=== PATIENT | male | born 1970 | race Caucasian/White ===

== ENCOUNTER 2019-02-06 23:38 | Observation (INO) | payer SELFPAY ==
[~2019-02-06] VITALS: Ht 182.9 cm; Wt 100.2 kg
[2019-02-06] MEDS ORDERED: ASPIRIN 81 MG CHEW (CHILDREN'S ASA) ONE (23:58)
[2019-02-07] VITALS (10 sets, daily range): BP systolic 108–130; BP diastolic 63–90
[2019-02-07] MEDS ORDERED: ANTACID SUSP 30 ML UDC (MYLANTA) ONE (01:10)
[2019-02-07] MEDS ORDERED: KETOROLAC 30 MG/ML VIAL ONE (01:10)
[2019-02-07] MEDS ORDERED: LIDOCAINE 2% VISCOUS 15 ML UDC ONE (01:10)
[2019-02-07 02:18] LABS: BASOPHILS % (AUTO) 0 % (0-10); EOSINOPHILS % (AUTO) 1 % (0-10); HEMATOCRIT 45 % (40-54); HEMOGLOBIN 14.9 G/DL (13.3-17.7); LYMPHOCYTES % (AUTO) 32 % (12-44); MEAN CORPUSCULAR HEMOGLOBIN 30 PG (25-34); MEAN CORPUSCULAR HGB CONC 33 G/DL (32-36); MEAN CORPUSCULAR VOLUME 89 FL (80-99); MEAN PLATELET VOLUME 10.6 FL (7.4-10.4); MONOCYTES % (AUTO) 7 % (0-12); NEUTROPHILS % (AUTO) 60 % (42-75); PLATELET COUNT 220 10^3/uL (130-400); RED CELL DISTRIBUTION WIDTH 13.9 % (10.0-14.5)
[2019-02-07 02:19] LABS: CARBON DIOXIDE 23 MMOL/L (21-32); CHLORIDE 104 MMOL/L (98-107); EOSINOPHILS # (AUTO) 0.1 10^3/uL (0.0-0.3); LYMPHOCYTES # (AUTO) 3.5 X 10^3 (1.0-4.0); MONOCYTES # (AUTO) 0.8 X 10^3 (0.0-1.0); NEUTROPHILS # (AUTO) 6.6 X 10^3 (1.8-7.8); POTASSIUM 4.1 MMOL/L (3.6-5.0); SODIUM 138 MMOL/L (135-145)
[2019-02-07 02:20] LABS: ALANINE AMINOTRANSFERASE 14 U/L (0-55); ALBUMIN 4.5 GM/DL (3.2-4.5); ALKALINE PHOSPHATASE 105 U/L (40-136); AMYLASE 38 U/L (25-125); BILIRUBIN,TOTAL 0.5 MG/DL (0.1-1.0); BUN/CREATININE RATIO 13; CALCIUM 9.4 MG/DL (8.5-10.1); CREATININE SERUM 1.13 MG/DL (0.60-1.30); GFR ESTIMATED > 60; GLUCOSE 106 MG/DL (70-105); MYOGLOBIN SERUM 56.2 NG/ML (10.0-92.0); TOTAL PROTEIN 7.6 GM/DL (6.4-8.2)
[2019-02-07 02:21] LABS: LIPASE 10 U/L (8-78)
[2019-02-07] MEDS ORDERED: fentaNYL INJECTION 100 MCG/2 ML AMP ONE (02:22)
--- NOTE | 2019-02-07 02:36 | ED Chest Pain ---
General Stated Complaint: CP Source: patient Exam Limitations: no limitations History of Present Illness Date Seen by Provider: Feb 07, 2019 Time Seen by Provider: 00:50 Initial Comments Here with report of chest pain is been going on for the last 12 hours constantly and intermittently over the last 24 hours. Denies nausea, vomiting or diarrhea. Does admit to diaphoresis and shortness of air. States that he's had 3 previous heart calves and heart attacks but no stents. States that is 70% block in one of his vessels on his last heart catheter a few years ago. Nothing seems to be making it better. He seems to have worsened with activity. He is new to town with his and apparently got into town just today. They're looking around town for a house when their truck broke down and so there are walking around town. He was during this that his chest pain became persistent and severe. Reports a central and radiates to the left shoulder. Reportedly tried several nitroglycerin tablets that he had and that did not help. Timing/Duration: 12 hours Severity/Quality: moderate, severe, pressure Location: central Radiation: shoulders Activities at Onset: activity Prior CP/Workup: cardiac cath ASA po CUSTOMER QUALITY ENGINEER: Yes NTG SL CUSTOMER QUALITY ENGINEER: Yes Associated Symptoms: No abdominal pain, No back pain; diaphoresis; No fever/ chills, No nausea/vomiting; shortness of breath; No weakness Allergies and Home Medications Allergies Coded Allergies: Penicillins (Verified Allergy, Unknown, 02/07/19) heparin (Verified Allergy, Unknown, 02/07/19) morphine (Verified Allergy, Unknown, 02/07/19) Patient Home Medication List Home Medication List Reviewed: Yes Review of Systems Review of Systems Constitutional: see HPI EENTM: No Symptoms Reported Respiratory: Shortness of Air; Denies Wheezing Cardiovascular: Chest Pain; Denies Edema Gastrointestinal: Denies Abdominal Pain, Denies Diarrhea, Denies Nausea, Denies Vomiting Genitourinary: No Symptoms Reported Musculoskeletal: No back pain; muscle pain Skin: no symptoms reported Psychiatric/Neurological: No Symptoms Reported Endocrine: No Symptoms Reported All Other Systems Reviewed Negative Unless Noted: Yes Past Ufjkeqk-Lwluge-Tiyrys Hx Past Med/Social Hx: Reviewed Nursing Past Med/Soc Hx Patient Social History Alcohol Use: Denies Use Recreational Drug Use: No Smoking Status: Current Everyday Smoker Recent Foreign Travel: No Contact w/Someone Who Travel: No Past Medical History Surgeries: Yes Adenoidectomy, Ear Surgery, Tonsillectomy Respiratory: No Cardiac: Yes Coronary Artery Disease, High Cholesterol, Hypertension Neurological: No Genitourinary: No Gastrointestinal: No Musculoskeletal: No Endocrine: No HEENT: No Cancer: No Psychosocial: No Family Medical History Reviewed and Corrections made Heart Disease, Cancer, Hypertension Physical Exam Vital Signs Vital Signs - First Documented Capillary Refill : Height, Weight, BMI Height: '" Weight: lbs. oz. kg; BMI Method: General Appearance: No Apparent Distress, WD/WN HEENT: PERRL/EOMI, Pharynx Normal Neck: Non Tender, Supple Respiratory: Lungs Clear, Normal Breath Sounds Cardiovascular: Regular Rate, Rhythm, No Murmur Gastrointestinal: Non Tender, Soft Extremity: Normal Range of Motion, Non Tender Neurologic/Psychiatric: Alert, Oriented x3 Skin: Normal Color, Warm/Dry Progress/Results/Core Measures Results/Orders My Orders Medications Given in ED Vital Signs/I&O 02/06/19 02/06/19 23:38 23:38 Temp 98.9 Pulse 81 Resp 16 B/P (MAP) 149/109 (122) Pulse Ox 96 O2 Delivery Room Air Room Air Progress Progress Note : Progress Note Seen and evaluated. Down time charting initiated. IV, labs, chest x-ray, lipase and d-dimer ordered. GI cocktail and Toradol 30 mg IV ordered. This did not help his pain. 0204: Pain still persistent despite meds. Fentanyl 25 g IV. Given his history and previous heart catheter with moderate blockage noted, patient will need admission. This was discussed with the patient his . They agree to admission, observation status. Case is discussed with Dr. CORRAL and he accepts patient for admission. Consult cardiology in the morning. Initial ECG Impression Date: Feb 06, 2019 Initial ECG Impression Time: 23:43 Initial ECG Rate: 74 Initial ECG Rhythm: Normal Sinus Initial ECG Comparisson: No Previous ECG Available Comment Sinus rhythm with normal axis. No evidence of ST elevation NV. No previous available for comparison. Interpreted by me. Diagnostic Imaging Diagonstic Imaging: Xray Plain Films/CT/US/NM/MRI: chest Comments no acute findings. Reviewed: Reviewed by Me Departure Communication (Admissions) Time/Spoke to Admitting Phy: 02:04 Impression Primary Impression: Chest pain Qualified Codes: R07.9 - Chest pain, unspecified Disposition: 09 ADMITTED INPATIENT Condition: Stable Admissions Decision to Admit Reason: Admit from ER (Trauma) Decision to Admit/Date: Feb 07, 2019 Time/Decision to Admit Time: 02:04 Departure-Patient Inst. Referrals: NO,LOCAL PHYSICIAN (PCP/Family) Primary Care Physician FELIPE BROWN MD Feb 07, 2019 02:36
[2019-02-07] MEDS ORDERED: ASPIRIN 81 MG CHEW (CHILDREN'S ASA) PO ONE (03:15)
[2019-02-07] MEDS ORDERED: NS IV 1000 ML 1,000 ML ONE (03:35)
[2019-02-07] MEDS ORDERED: fentaNYL INJECTION 100 MCG/2 ML AMP IV PRN (04:15)
[2019-02-07] MEDS ORDERED: RT-ALBUTEROL/IPRATROPIUM 3 ML (DUONEB) VIAL INH PRN (04:15)
[2019-02-07] MEDS ORDERED: NITROGLYCERIN 0.4 MG SL TABS BTL 25'S SL PRN (04:15)
[2019-02-07] MEDS ORDERED: NS IV 1000 ML 1,000 ML IV SCH (04:15)
[2019-02-07] MEDS ORDERED: ONDANSETRON 4 MG/2 ML (SDV) Z0FRAN IV PRN (04:15)
[2019-02-07] MEDS ORDERED: KETOROLAC 30 MG/ML VIAL IVP PRN (05:30)
[2019-02-07] MEDS ORDERED: ANTACID SUSP 30 ML UDC (MYLANTA) PO ONE (05:30)
[2019-02-07] MEDS ORDERED: LIDOCAINE 2% VISCOUS 15 ML UDC PO ONE (05:30)
--- NOTE | 2019-02-07 06:45 | Consultation-Cardiology ---
HPI-Cardiology Cardiology Consultation Date of Consultation 02/07/19 Date of Admission Time Seen by Provider: 06:40 Indication: Chest pain HPI 48 years old gentleman with history of coronary artery disease reported multiple cardiac catheterization last cardiac catheterization was done late in 2017 and reported to have kfwh-vi-xdbsosuj disease nonobstructive disease. Has been having recurrent chest pain described as left sided associated with shortness of breath. No palpitation, no syncope or near syncopal episodes. No claudications. Home Medications & Allergies Allergies: Coded Allergies: Penicillins (Verified Allergy, Unknown, 02/07/19) Sulfa (Sulfonamide Antibiotics) (Verified Allergy, Unknown, 02/07/19) codeine (Verified Allergy, Unknown, 02/07/19) heparin (Verified Allergy, Unknown, 02/07/19) meperidine (Verified Allergy, Unknown, 02/07/19) morphine (Verified Allergy, Unknown, 02/07/19) Home Medication List Reviewed: Yes NMM-Cbxtgf-Wdpcmu Hx Patient Social History Marital Status: Employed/Student: unemployed Alcohol Use: Denies Use Recreational Drug Use: No Smoking Status: Current Everyday Smoker Type Used: Cigarettes 2nd Hand Smoke Exposure: Yes Recent Foreign Travel: No Recent Infectious Disease Expo: No Recent Hopitalizations: No Past Medical History as described below Family Medical History Significant Family History: Heart Disease, Cancer, Hypertension Family Medical Hx noncontributory Review of Systems Constitutional: no symptoms reported, see HPI EENTM: see HPI, no symptoms reported Respiratory: see HPI; No cough; dyspnea on exertion; No hemoptysis, No orthopnea, No phlegm, No short of breath, No stridor, No wheezing, No other Cardiovascular: see HPI, chest pain; No edema, No Hx of Intervention, No palpitations, No syncope, No vascular heart diseas, No other Gastrointestinal: no symptoms reported, see HPI Genitourinary: no symptoms reported, see HPI Musculoskeletal: no symptoms reported, see HPI Skin: no symptoms reported, see HPI Psychiatric/Neurological: No Symptoms Reported, See HPI Physical Exam Vital Signs Vital Signs - First Documented 02/07/19 04:11 FiO2 21 Capillary Refill : Less Than 3 Seconds Height, Weight, BMI Height: 6'0.00" Weight: 221lbs. 0.0oz. 100.202556lh; 30.0 BMI Method:Stated General Appearance: No Apparent Distress, WD/WN Eyes: Bilateral Eye Normal Inspection, Bilateral Eye PERRL, Bilateral Eye EOMI HEENT: PERRL/EOMI, TMs Normal, Normal ENT Inspection, Pharynx Normal Neck: Full Range of Motion, Normal Inspection, Non Tender, Supple, Carotid Bruit Respiratory: Chest Non Tender, Lungs Clear, Normal Breath Sounds, No Accessory Muscle Use, No Respiratory Distress Cardiovascular: Regular Rate, Rhythm, No Edema, No Gallop, No JVD, No Murmur, Normal Peripheral Pulses Gastrointestinal: Normal Bowel Sounds, No Organomegaly, No Pulsatile Mass, Non Tender, Soft Back: Normal Inspection, No CVA Tenderness, No Vertebral Tenderness Extremity: Normal Capillary Refill, Normal Inspection, Normal Range of Motion, Non Tender, No Calf Tenderness, No Pedal Edema Neurologic/Psychiatric: Alert, Oriented x3, No Motor/Sensory Deficits, Normal Mood/Affect Skin: Normal Color, Warm/Dry Lymphatic: No Adenopathy A/P-Cardiology Admission Diagnosis Chest pain Coronary artery disease Hypertension Hyperlipidemia Assessment/Plan Chest pain nonspecific etiology, resembling angina, planning to evaluate stress echo Coronary artery disease, reported multiple cardiac catheterization, last cardiac catheterization was done late in 2016 in [place], reporting mild to moderate disease nonobstructive disease. Treated conservatively Hypertension, restart home medication monitor blood pressure next Hyperlipidemia, restart home medication monitor Tobaccoism, educated on smoking cessation Stress test is negative, ok for discharge Clinical Quality Measures AMI/AHF: ASA po Prior to arrival: Yes DVT/VTE Risk/Contraindication: Risk Factor Score Per Nursin RFS Level Per Nursing on Admit: 2=Moderate RAVEN DIA MD Feb 07, 2019 06:45
--- NOTE | 2019-02-07 07:24 | Diagnostic Imaging Report ---
INDICATION: Chest pain Upright portable AP view of the chest is obtained. There is no previous study for comparison. There is mild air trapping in the upper lobes. No pneumothorax or consolidation is identified. There maybe mild parahilar atelectasis, greater on the right. IMPRESSION: Right parahilar atelectasis with air trapping in the upper lobes which could be due to emphysema. Otherwise no acute abnormality seen. Dictated by: Dictated on workstation # [id number]
[2019-02-07] MEDS ORDERED: FLU QUADRIvalent (5+ YOA) 2018-2019 (AFLURIA) 0.5 ML IM ONE (07:30)
--- OUTSIDE RECORDS SUMMARY | 2019-02-07 07:35 | XMS REPORT | Continuity of Care Document ---
Author Author [facility] Organization [facility] Address Unknown Phone Unavailable Allergies There is no data. Medications There is no data. Problems There is no data. Procedures There is no data. Results There is no data. Encounters ACCT No. Visit Date/Time Discharge Status Pt. Type Provider Facility Loc./Unit Complaint [id number] 07/01/2015 14:53:00 07/01/2015 15:52:00 [facility]
--- OUTSIDE RECORDS SUMMARY | 2019-02-07 07:36 | XMS REPORT | Continuity of Care Document ---
Author Author [facility] Organization [facility] Address Unknown Phone Unavailable Allergies There is no data. Medications There is no data. Problems There is no data. Procedures There is no data. Results There is no data. Encounters ACCT No. Visit Date/Time Discharge Status Pt. Type Provider Facility Loc./Unit Complaint [id number] 07/01/2015 14:53:00 07/01/2015 15:52:00 DIS Emergency [facility]
--- NOTE | 2019-02-07 07:49 | History & Physical-Hospitalist ---
History of Present Illness HPI/Chief Complaint Pt is a 48yoCM with a PMH of CAD who presented to the ER due to chest pain. His car broke down and he was walking when he developed central chest pain that radiated to his left arm. He states he became quite sweaty and SOB with it as well. When it persisted despite rest he decided to seek care in the ER as he thought the pain felt similar to his previous heart attacks. He was given a GI cocktail without relief and nitro without relief. He states the only thing that helped was fentanyl. He states he is still having slight chest pain now. He reports a history of 3 heart attacks and 4 cardiac caths done in the past without stent placement. He believes he has a 70% stenosis somewhere but was told they wouldn't stent it unless it was over 85% but the outside facility. Source: patient Date Seen 02/07/19 Time Seen by a Provider: 07:44 Attending Physician Gareth Franco MD PCP No,Local Physician Referring Physician Date of Admission Feb 07, 2019 at 02:04 Home Medications & Allergies Home Medications Reviewed patient Home Medication Reconciliation performed by pharmacy medication reconciliations oxygen equipment technician and/or nursing. Patients Allergies have been reviewed. Allergies Allergies Coded Allergies Penicillins (Verified Allergy, Unknown, 02/07/19) Sulfa (Sulfonamide Antibiotics) (Verified Allergy, Unknown, 02/07/19) codeine (Verified Allergy, Unknown, 02/07/19) heparin (Verified Allergy, Unknown, 02/07/19) meperidine (Verified Allergy, Unknown, 02/07/19) morphine (Verified Allergy, Unknown, 02/07/19) Past Gvwqpoa-Gnmshc-Hpnfvl Hx Past Med/Social Hx: Reviewed Nursing Past Med/Soc Hx Patient Social History Marrital Status: Employed/Student: unemployed Alcohol Use: Denies Use Recreational Drug Use: No Smoking Status: Current Everyday Smoker Cigaretts per day: 10 Type Used: Cigarettes 2nd Hand Smoke Exposure: Yes Recent Foreign Travel: No Contact w/other who traveled: No Recent Hopitalizations: No Recent Infectious Disease Expo: No Seasonal Allergies Seasonal Allergies: No Past Medical History Surgeries: Adenoidectomy, Ear Surgery, Tonsillectomy Cardiac: Coronary Artery Disease, Heart Attack, High Cholesterol, Hypertension History of Blood Disorders: No Family History Reviewed Nursing Family Hx Heart Disease, Cancer, CAD Under 55 Years Old, Hypertension Review of Systems Constitutional: no symptoms reported EENTM: no symptoms reported Respiratory: dyspnea on exertion, short of breath Cardiovascular: see HPI, chest pain; No edema; Hx of Intervention; No palpitations Gastrointestinal: no symptoms reported Genitourinary: no symptoms reported Musculoskeletal: no symptoms reported Skin: no symptoms reported Psychiatric/Neurological: No Symptoms Reported Physical Exam Physical Exam Vital Signs Vital Signs - First Documented 02/07/19 04:11 FiO2 21 Capillary Refill : Less Than 3 Seconds Height, Weight, BMI Height: 6'0.00" Weight: 221lbs. 0.0oz. 100.797378xe; 30.0 BMI Method:Stated General Appearance: No Apparent Distress, WD/WN HEENT: PERRL/EOMI, Moist Mucous Membranes; No Scleral Icterus (L), No Scleral Icterus (R) Neck: Normal Inspection, Supple; No Thyromegaly Respiratory: Lungs Clear, No Accessory Muscle Use, No Respiratory Distress Cardiovascular: Regular Rate, Rhythm, No Murmur, Normal Peripheral Pulses Gastrointestinal: Normal Bowel Sounds, Non Tender, Soft Extremity: No Calf Tenderness, No Pedal Edema Neurologic/Psychiatric: Alert, Oriented x3, Normal Mood/Affect Skin: Normal Color, Warm/Dry Results Results/Procedures Labs Patient resulted labs reviewed. Imaging: Reviewed Imaging Report Imaging Date of Exam:02/07/19 CHEST 1 VIEW, AP/PA ONLY INDICATION: Chest pain Upright portable AP view of the chest is obtained. There is no previous study for comparison. There is mild air trapping in the upper lobes. No pneumothorax or consolidation is identified. There maybe mild parahilar atelectasis, greater on the right. IMPRESSION: Right parahilar atelectasis with air trapping in the upper lobes which could be due to emphysema. Otherwise no acute abnormality seen. Assessment/Plan Admission Diagnosis Chest Pain Admission Status: Observation Diagnosis/Problems Diagnosis/Problems (1) Chest pain Status: Acute Assessment & Plan: Cardiology consulted, appreciate recs Troponin negative x2 Plan for Stress Echo If negative could DC if ok with cardiology Qualifiers: Chest pain type: unspecified Qualified Codes: R07.9 - Chest pain, unspecified (2) Tobacco abuse Assessment & Plan: Recommended smoking cessation Clinical Quality Measures AMI/AHF: ASA po Prior to arrival: Yes DVT/VTE Risk/Contraindication: Risk Factor Score Per Nursin RFS Level Per Nursing on Admit: 2=Moderate DIANNE IBANEZ MD Feb 07, 2019 07:49
[2019-02-07] MEDS ORDERED: ASPIRIN E.C. 81 MG (ECOTRIN) TAB PO SCH (09:00)
--- NOTE | 2019-02-07 09:11 | Discharge Inst-Simple/Standard ---
Discharge Inst-Standard Patient Instructions/Follow Up Plan of Care/Instructions/FU: Please continue to take your medications as written. Please follow up with Dr Davison in 1 month and establish care with a PCP here in town. Activity as Tolerated: Yes Discharge Diet: Cardiac Diet Return to The Hospital For: Chest pain, shortness of breath, if you feel you are getting worse. Planned Outpatient Orders/Ref. Pneu Vac Indicated: Yes DIANNE IBANEZ MD Feb 07, 2019 09:11
--- NOTE | 2019-02-07 09:30 | NUR ---
CM/SS spoke with the patient and his SO. They recently moved to the area. They utilize all resources available at the [facility] and have been approved for the housing program. Patient did not feel he had any other needs related to discharge.
--- NOTE | 2019-02-07 19:39 | Short Stay Summary-Hospitalist ---
History of Present Illness HPI/Chief Complaint Pt is a 48yoCM with a PMH of CAD who presented to the ER due to chest pain. His car broke down and he was walking when he developed central chest pain that radiated to his left arm. He states he became quite sweaty and SOB with it as well. When it persisted despite rest he decided to seek care in the ER as he thought the pain felt similar to his previous heart attacks. He was given a GI cocktail without relief and nitro without relief. He states the only thing that helped was fentanyl. He states he is still having slight chest pain now. He reports a history of 3 heart attacks and 4 cardiac caths done in the past without stent placement. He believes he has a 70% stenosis somewhere but was told they wouldn't stent it unless it was over 85% but the outside facility. Date Seen 02/07/19 Time Seen by a Provider: 07:30 Attending Physician Gareth Franco MD PCP No,Local Physician Referring Physician Date of Admission Feb 07, 2019 at 02:04 Home Medications & Allergies Home Medications Reviewed patient Home Medication Reconciliation performed by pharmacy medication reconciliations printer technician and/or nursing. Patients Allergies have been reviewed. Allergies Allergies Coded Allergies Penicillins (Verified Allergy, Severe, Anaphylaxis , 02/07/19) Sulfa (Sulfonamide Antibiotics) (Verified Allergy, Intermediate, Anaphylaxis, 02/07/19) codeine (Verified Allergy, Unknown, 02/07/19) heparin (Verified Allergy, Unknown, 02/07/19) meperidine (Verified Allergy, Unknown, 02/07/19) morphine (Verified Allergy, Unknown, 02/07/19) Past Zzddece-Oghszf-Ptaxys Hx Past Med/Social Hx: Reviewed Nursing Past Med/Soc Hx Patient Social History Marrital Status: Employed/Student: unemployed Alcohol Use: Denies Use Recreational Drug Use: No Smoking Status: Current Everyday Smoker Cigaretts per day: 10 Type Used: Cigarettes 2nd Hand Smoke Exposure: Yes Recent Foreign Travel: No Contact w/other who traveled: No Recent Hopitalizations: No Recent Infectious Disease Expo: No Seasonal Allergies Seasonal Allergies: No Past Medical History Surgeries: Adenoidectomy, Ear Surgery, Tonsillectomy Cardiac: Coronary Artery Disease, Heart Attack, High Cholesterol, Hypertension History of Blood Disorders: No Family History Reviewed Nursing Family Hx Heart Disease, Cancer, CAD Under 55 Years Old, Hypertension Review of Systems Constitutional: no symptoms reported EENTM: no symptoms reported Respiratory: dyspnea on exertion, short of breath Cardiovascular: see HPI, chest pain, Hx of Intervention Gastrointestinal: no symptoms reported Genitourinary: no symptoms reported Musculoskeletal: no symptoms reported Skin: no symptoms reported Psychiatric/Neurological: No Symptoms Reported Physical Exam Physical Exam Vital Signs Vital Signs - First Documented 02/07/19 04:11 FiO2 21 Capillary Refill : Less Than 3 Seconds Height, Weight, BMI Height: 6'0.00" Weight: 221lbs. 0.0oz. 100.718341pc; 30.0 BMI Method:Stated General Appearance: No Apparent Distress, WD/WN Eyes: Bilateral Eye Normal Inspection, Bilateral Eye PERRL, Bilateral Eye EOMI HEENT: PERRL/EOMI, TMs Normal, Normal ENT Inspection, Pharynx Normal Neck: Supple, Carotid Bruit; No Thyromegaly Respiratory: Lungs Clear, No Accessory Muscle Use, No Respiratory Distress Cardiovascular: Regular Rate, Rhythm, No Edema, No Murmur, Normal Peripheral Pulses Gastrointestinal: Normal Bowel Sounds, Non Tender, Soft Extremity: Normal Capillary Refill, Normal Inspection, No Calf Tenderness, No Pedal Edema Neurologic/Psychiatric: Alert, Oriented x3, Normal Mood/Affect Skin: Normal Color, Warm/Dry Results Results/Procedures Labs Laboratory Tests 02/07/19 23:55 Patient resulted labs reviewed. Imaging: Reviewed Imaging Report Short Stay Diagnosis Discharge Diagnosis-Short Stay Admission Diagnosis Chest Pain Final Discharge Diagnosis Chest Pain Conclusion Plan Chest Pain Cardiology consulted, appreciate recs underwent stress echo and was normal Troponins negative when trended He is to follow up with Dr Davison in 1 month Social Work consulted to assist with homelessness Plan to DC home when medications optimized but patient elected to leave AMA to go smoke before this could happen Diagnosis/Problems Diagnosis/Problems (1) Chest pain Status: Acute Qualifiers: Qualified Codes: R07.9 - Chest pain, unspecified (2) Tobacco abuse Clinical Quality Measures AMI/AHF: ASA po Prior to arrival: Yes DVT/VTE Risk/Contraindication: Risk Factor Score Per Nursin RFS Level Per Nursing on Admit: 2=Moderate DIANNE IBANEZ MD Feb 07, 2019 19:39
--- OUTSIDE RECORDS SUMMARY | 2019-02-08 15:51 | XMS REPORT | Continuity of Care Document ---
Author Author [facility] Organization [facility] Address Unknown Phone Unavailable Allergies There is no data. Medications There is no data. Problems There is no data. Procedures There is no data. Results There is no data. Encounters ACCT No. Visit Date/Time Discharge Status Pt. Type Provider Facility Loc./Unit Complaint [id number] 07/01/2015 14:53:00 07/01/2015 15:52:00 [facility]
== END 2019-02-07 09:11 | disposition left against medical advice (07) ==
LOC: ER 23:38 → ICU 02-07 02:04 → UNDOADMOB 02-07 02:04 → ICU 02-07 03:25 → UNDODISOB 02-07 09:50
PROVIDERS: ADMIT Internal Medicine; ATTEND Internal Medicine
DX: R07.9 Chest pain, unspecified (principal); I25.10 Atherosclerotic heart disease of native coronary artery without angina pectoris; E78.00 Pure hypercholesterolemia, unspecified; E78.5 Hyperlipidemia, unspecified; I10 Essential (primary) hypertension; F17.210 Nicotine dependence, cigarettes, uncomplicated; Z88.0 Allergy status to penicillin; Z88.2 Allergy status to sulfonamides; Z88.5 Allergy status to narcotic agent
CPT/HCPCS: 36415; 71045; 80053; 82150; 83690; 83874; 83880; 84484; 85025; 85379; 90686; 93005; 93351

== ENCOUNTER 2019-06-06 13:49 | Emergency (ER) | payer SELFPAY ==
[~2019-06-06] VITALS: Ht 188 cm; Wt 104.3 kg
--- OUTSIDE RECORDS SUMMARY | 2019-06-06 13:56 | XMS REPORT | Continuity of Care Document ---
Author Organization Unknown Address Unknown Allergies There is no data. Medications There is no data. Problems There is no data. Procedures There is no data. Results There is no data. Encounters ACCT No. Visit Date/Time Discharge Status Pt. Type Provider Facility Loc./Unit Complaint [id number] 07/01/2015 14:53:00 07/01/2015 15:52:00 DIS Emergency [facility] PATRICIA
--- NOTE | 2019-06-06 14:37 | ED Upper Extremity ---
General Chief Complaint: Upper Extremity Stated Complaint: L ARM MUSCLE PAIN Nursing Triage Note: PATIENT STATES THAT HE HAS BEEN HAVING PAIN IN HIS LEFT ARM FOR A COUPLE WEEKS. IT FEELS LIKE SOMETHING IS TEARING WHEN HE ATTEMPTS TO STRAIGHTEN IT OUT. Nursing Sepsis Screen: No Definite Risk Source: patient Exam Limitations: no limitations History of Present Illness Date Seen by Provider: Jun 06, 2019 Time Seen by Provider: 14:35 Initial Comments To ER per private vehicle with reports of left anterior shoulder pain. This began a couple of weeks ago without any known injury though he did state that he helped up an obese friend. Since then when he abducts his arm he has significant pain and feels like something is tearing. No other joint pains Onset: other Severity: moderate Pain/Injury Location: left shoulder Method of Injury: fell Modifying Factors: Worse With Movement Allergies and Home Medications Allergies Coded Allergies: Penicillins (Verified Allergy, Severe, Anaphylaxis , 02/07/19) Sulfa (Sulfonamide Antibiotics) (Verified Allergy, Intermediate, Anaphylaxis, 02/07/19) codeine (Verified Allergy, Unknown, 02/07/19) heparin (Verified Allergy, Unknown, 02/07/19) meperidine (Verified Allergy, Unknown, 02/07/19) morphine (Verified Allergy, Unknown, 02/07/19) Home Medications No Active Prescriptions or Reported Meds Patient Home Medication List Home Medication List Reviewed: Yes Review of Systems Constitutional: see HPI EENTM: see HPI Respiratory: no symptoms reported Cardiovascular: no symptoms reported Genitourinary: no symptoms reported Musculoskeletal: see HPI Skin: no symptoms reported Psychiatric/Neurological: No Symptoms Reported Past Cmiqqie-Upwyff-Phqcnb Hx Patient Social History Type Used: Cigarettes 2nd Hand Smoke Exposure: Yes Recent Foreign Travel: No Contact w/Someone Who Travel: No Recent Infectious Disease Expo: No Recent Hopitalizations: No Seasonal Allergies Seasonal Allergies: No Past Medical History Surgeries: Yes Adenoidectomy, Ear Surgery, Tonsillectomy Respiratory: No Cardiac: Yes Coronary Artery Disease, Heart Attack, High Cholesterol, Hypertension Neurological: No Genitourinary: No Gastrointestinal: No Musculoskeletal: No Endocrine: No HEENT: No Cancer: No Psychosocial: No Integumentary: No Blood Disorders: No Family Medical History Heart Disease, Cancer, CAD Under 55 Years Old, Hypertension Physical Exam Vital Signs Vital Signs - First Documented 06/06/19 14:03 Pulse 92 Resp 18 B/P (MAP) 130/84 (99) Pulse Ox 98 Capillary Refill : Less Than 3 Seconds Height, Weight, BMI Height: 6'2.00" Weight: 230lbs. 0oz. 104.168378wx; 30.0 BMI Method:Actual General Appearance: WD/WN, no apparent distress Respiratory: no respiratory distress, no accessory muscle use Shoulder: normal inspection, limited ROM, pain Elbow/Forearm: normal inspection, non-tender Wrist: Yes non-tender Hand: normal inspection, non-tender Neurologic/Tendon: normal sensation, normal motor functions Neurologic/Psychiatric: alert, normal mood/affect, oriented x 3 Skin: normal color, warm/dry Progress/Results/Core Measures Results/Orders My Orders Orders - ROMY CAMPUZANO APRN Shoulder, Left, 3 Views (06/06/19 14:35) Vital Signs/I&O 06/06/19 14:03 Pulse 92 Resp 18 B/P (MAP) 130/84 (99) Pulse Ox 98 Blood Pressure Mean: 99 Departure Impression Primary Impression: Rotator cuff injury Qualified Codes: S46.002A - Unspecified injury of muscle(s) and tendon(s) of the rotator cuff of left shoulder, initial encounter Disposition: HOME, SELF-CARE Condition: Stable Departure-Patient Inst. Decision time for Depature: 14:37 Referrals: MARY JO PIERCE MD, BRIAN J MD NO,LOCAL PHYSICIAN (PCP) Primary Care Physician PRISCILA JEFFERSON MD, ROBERT F DO ZAFUTA,KALYANI Ferrara MD Patient Instructions: Rotator Cuff Injury (DC) Add. Discharge Instructions: 1. Return to ER for any concerns 2. Medication as directed 3. All discharge instructions reviewed with patient and/or family. Voiced understanding. Scripts Naproxen (Naprosyn) 500 Mg Tablet 500 MG PO BID PRN for PAIN-MODERATE TO SEVERE, #30 TAB 0 Refills Prov: ROMY CAMPUZANO APRN 06/06/19 Work/School Note: Work Release Form Date Seen in the Emergency Department: Jun 06, 2019 Return to Work: Jun 08, 2019 ROMY CAMPUZANO APRN Jun 06, 2019 14:37
[2019-06-06] MEDS ORDERED: NAPR-1071 PO (15:14)
[2019-06-06 15:20] VITALS: BP 130/84
--- NOTE | 2019-06-06 15:25 | Diagnostic Imaging Report ---
INDICATION: Pain. EXAMINATION: Three views of the left shoulder were obtained. FINDINGS: Three-view left shoulder demonstrates no fracture, bony erosion, abnormal calcifications or opaque loose body. The alignment is normal. IMPRESSION: Negative. Dictated by: Dictated on workstation # [id number]
== END 2019-06-06 15:20 | disposition home or self-care (01) ==
LOC: EDUNIT# 13:49 → ER 13:50
DX: S46.002A Unspecified injury of muscle(s) and tendon(s) of the rotator cuff of left shoulder, initial encounter (principal); I10 Essential (primary) hypertension; I25.10 Atherosclerotic heart disease of native coronary artery without angina pectoris; I25.2 Old myocardial infarction; E78.00 Pure hypercholesterolemia, unspecified; F17.210 Nicotine dependence, cigarettes, uncomplicated; Z90.89 Acquired absence of other organs; Z88.0 Allergy status to penicillin; Z88.5 Allergy status to narcotic agent; Z88.2 Allergy status to sulfonamides; Z82.49 Family history of ischemic heart disease and other diseases of the circulatory system; Z80.9 Family history of malignant neoplasm, unspecified; Z88.8 Allergy status to other drugs, medicaments and biological substances; X58.XXXA Exposure to other specified factors, initial encounter
CPT/HCPCS: 73030

== ENCOUNTER 2021-02-20 03:48 | Emergency (ER) | payer SELFPAY ==
[~2021-02-20] VITALS: Ht 188 cm; Wt 105.0 kg
[~2021-02-20 03:48] MED LIST: NAPR-1071 PO
[2021-02-20] MEDS ORDERED: LACTATED RINGERS 1,000 ML IV ONE (03:56)
[2021-02-20] MEDS ORDERED: ONDANSETRON 4 MG/2 ML (SDV) Z0FRAN ONE (03:56)
[2021-02-20] MEDS ORDERED: ONDANSETRON 4 MG/2 ML (SDV) Z0FRAN IVP ONE (04:15)
[2021-02-20 04:20] LABS: BASOPHILS # (AUTO) 0.1 10^3/uL (0.0-0.1); BASOPHILS % (AUTO) 0 % (0-10); EOSINOPHILS # (AUTO) 0.2 10^3/uL (0.0-0.3); EOSINOPHILS % (AUTO) 1 % (0-10); HEMATOCRIT 48 % (40-54); HEMOGLOBIN 15.3 g/dL (13.3-17.7); LYMPHOCYTES # (AUTO) 1.5 10^3/uL (1.0-4.0); LYMPHOCYTES % (AUTO) 11 % (12-44); MEAN CORPUSCULAR HEMOGLOBIN 29 pg (25-34); MEAN CORPUSCULAR HGB CONC 32 g/dL (32-36); MEAN CORPUSCULAR VOLUME 91 fL (80-99); MONOCYTES # (AUTO) 0.8 10^3/uL (0.0-1.0); MONOCYTES % (AUTO) 6 % (0-12); NEUTROPHILS % (AUTO) 82 % (42-75); PLATELET COUNT 251 10^3/uL (130-400); WHITE BLOOD COUNT 14.6 10^3/uL (4.3-11.0)
[2021-02-20 04:23] LABS: ALBUMIN 4.7 GM/DL (3.2-4.5); CHLORIDE 100 MMOL/L (98-107); POTASSIUM 4.3 MMOL/L (3.6-5.0); SODIUM 137 MMOL/L (135-145)
[2021-02-20 04:25] LABS: GLUCOSE 115 MG/DL (70-105); TOTAL PROTEIN 7.8 GM/DL (6.4-8.2)
[2021-02-20 04:26] LABS: CARBON DIOXIDE 25 MMOL/L (21-32)
[2021-02-20 04:29] LABS: ALKALINE PHOSPHATASE 104 U/L (40-136); CREATININE SERUM 1.09 MG/DL (0.60-1.30); GFR ESTIMATED > 60
[2021-02-20 04:30] LABS: BUN/CREATININE RATIO 10
[2021-02-20 04:32] LABS: ALANINE AMINOTRANSFERASE 27 U/L (0-55); MAGNESIUM 1.9 MG/DL (1.6-2.4)
[2021-02-20 04:58] LABS: EOSINOPHILS % (MANUAL) 1 %; LYMPHOCYTES % (MANUAL) 7 %; MONOCYTES % (MANUAL) 7 %; NEUTROPHILS % (MANUAL) 85 %; RBC MORPH NORMAL
[2021-02-20] MEDS ORDERED: ONDA4TAB11 PO (05:32)
--- NOTE | 2021-02-20 05:32 | ED General ---
General Chief Complaint: Abdominal/GI Problems Stated Complaint: VOMITING,SOA Nursing Triage Note: BROUGHT IN BY [facility] C/O N/V/D, SOA, NEAR SYNCOPAL EPISODE. REPORTS COVID VACCINE RECIEVED 02/19/21 Nursing Sepsis Screen: No Definite Risk Source of Information: Patient Exam Limitations: No Limitations History of Present Illness Date Seen by Provider: Feb 20, 2021 Time Seen by Provider: 03:49 Initial Comments This 51-year-old gentleman presents to the emergency room via EMS with complaints of dyspnea, nausea, vomiting, diarrhea, and an episode of near syncope. He received his second Covid vaccine as well as an influenza vaccine yesterday. He is afebrile. He denies chest pain. Allergies and Home Medications Allergies Coded Allergies: Penicillins (Verified Allergy, Severe, Anaphylaxis , 02/07/19) Sulfa (Sulfonamide Antibiotics) (Verified Allergy, Intermediate, An aphylaxis, 02/07/19) codeine (Verified Allergy, Unknown, 02/07/19) heparin (Verified Allergy, Unknown, 02/07/19) meperidine (Verified Allergy, Unknown, 02/07/19) morphine (Verified Allergy, Unknown, 02/07/19) Home Medications Naproxen 500 Mg Tablet, 500 MG PO BID PRN for PAIN-MODERATE TO SEVERE Prescribed by: ROMY CAMPUZANO on 06/06/19 1514 Ondansetron 4 Mg Tab.rapdis, 4 MG PO Q4H PRN for NAUSEA/VOMITING Prescribed by: PAPO LAKHANI on 02/20/21 0532 Patient Home Medication List Home Medication List Reviewed: Yes Review of Systems Review of Systems Constitutional: see HPI EENTM: no symptoms reported Respiratory: see HPI Cardiovascular: see HPI Gastrointestinal: see HPI Genitourinary: no symptoms reported Musculoskeletal: no symptoms reported Skin: no symptoms reported Psychiatric/Neurological: No Symptoms Reported Hematologic/Lymphatic: No Symptoms Reported Immunological/Allergic: no symptoms reported Past Gpbrbuw-Okhzhn-Skepnh Hx Past Med/Social Hx: Reviewed Nursing Past Med/Soc Hx Patient Social History Alcohol Use: Denies Use Smoking Status: Current Everyday Smoker Type Used: Cigarettes 2nd Hand Smoke Exposure: Yes Recent Infectious Disease Expo: No Recent Hopitalizations: No Seasonal Allergies Seasonal Allergies: No Past Medical History Surgeries: Yes Adenoidectomy, Ear Surgery, Tonsillectomy Respiratory: No Cardiac: Yes Coronary Artery Disease, Heart Attack, High Cholesterol, Hypertension Neurological: No Genitourinary: No Gastrointestinal: No Musculoskeletal: No Endocrine: No HEENT: Yes (Chronic sinusitis) Cancer: No Psychosocial: No Integumentary: No Blood Disorders: No Family Medical History Heart Disease, Cancer, CAD Under 55 Years Old, Hypertension Physical Exam Vital Signs Vital Signs - First Documented 02/20/21 03:50 Temp 37.1 Pulse 103 Resp 18 B/P (MAP) 139/107 (118) Pulse Ox 98 O2 Delivery Room Air Capillary Refill : Less Than 3 Seconds Height, Weight, BMI Height: 6'2.00" Weight: 230lbs. 0oz. 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 Skin: Normal Color, Warm/Dry Progress/Results/Core Measures Suspected Sepsis Recent Fever Within 48 Hours: No Infection Criteria Present: None New/Unexplained Altered Menta: No Sepsis Screen: No Definite Risk SIRS Temperature: Pulse: 103 Respiratory Rate: 18 Laboratory Tests 02/20/21 04:02: White Blood Count 14.6H Blood Pressure 139 /107 Mean: 118 Laboratory Tests 02/20/21 04:02: Creatinine 1.09, Platelet Count 251, Total Bilirubin 1.0 Results/Orders Lab Results Laboratory Tests Test 02/20/21 04:02 Range/Units White Blood Count 14.6 H 4.3-11.0 10^3/uL Red Blood Count 5.27 4.30-5.52 10^6/uL Hemoglobin 15.3 13.3-17.7 g/dL Hematocrit 48 40-54 % Mean Corpuscular Volume 91 80-99 fL Mean Corpuscular Hemoglobin 29 25-34 pg Mean Corpuscular Hemoglobin Concent 32 32-36 g/dL Red Cell Distribution Width 13.7 10.0-14.5 % Platelet Count 251 130-400 10^3/uL Mean Platelet Volume 10.0 9.0-12.2 fL Immature Granulocyte % (Auto) 0 % Neutrophils (%) (Auto) 82 H 42-75 % Lymphocytes (%) (Auto) 11 L 12-44 % Monocytes (%) (Auto) 6 0-12 % Eosinophils (%) (Auto) 1 0-10 % Basophils (%) (Auto) 0 0-10 % Neutrophils # (Auto) 12.0 H 1.8-7.8 10^3/uL Lymphocytes # (Auto) 1.5 1.0-4.0 10^3/uL Monocytes # (Auto) 0.8 0.0-1.0 10^3/uL Eosinophils # (Auto) 0.2 0.0-0.3 10^3/uL Basophils # (Auto) 0.1 0.0-0.1 10^3/uL Immature Granulocyte # (Auto) 0.1 0.0-0.1 10^3/uL Neutrophils % (Manual) 85 % Lymphocytes % (Manual) 7 % Monocytes % (Manual) 7 % Eosinophils % (Manual) 1 % Blood Morphology Comment NORMAL Sodium Level 137 135-145 MMOL/L Potassium Level 4.3 3.6-5.0 MMOL/L Chloride Level 100 98-107 MMOL/L Carbon Dioxide Level 25 21-32 MMOL/L Anion Gap 12 5-14 MMOL/L Blood Urea Nitrogen 11 7-18 MG/DL Creatinine 1.09 0.60-1.30 MG/DL Estimat Glomerular Filtration Rate > 60 BUN/Creatinine Ratio 10 Glucose Level 115 H 70-105 MG/DL Calcium Level 9.0 8.5-10.1 MG/DL Corrected Calcium 8.5-10.1 MG/DL Magnesium Level 1.9 1.6-2.4 MG/DL Total Bilirubin 1.0 0.1-1.0 MG/DL Aspartate Amino Transf (AST/SGOT) 14 5-34 U/L Alanine Aminotransferase (ALT/SGPT) 27 0-55 U/L Alkaline Phosphatase 104 40-136 U/L Total Protein 7.8 6.4-8.2 GM/DL Albumin 4.7 H 3.2-4.5 GM/DL Coronavirus 2019 (JULIANN) Negative Negative Micro Results Microbiology 02/20/21 Influenza Types A,B Antigen (ROHITH) - Final, Complete My Orders Orders - PAPO MONK MD Lactated Ringers (Lr 1000 Ml Iv Solution (02/20/21 03:56) Ondansetron Injection (Zofran Injectio (02/20/21 03:56) Cbc With Automated Diff (02/20/21 04:10) Comprehensive Metabolic Panel (02/20/21 04:10) Magnesium (02/20/21 04:10) Ed Iv/Invasive Line Start (02/20/21 04:10) Influenza A And B Antigens (02/20/21 04:10) Covid 19 Inhouse Test (02/20/21 04:10) Chest 1 View, Ap/Pa Only (02/20/21 04:11) Ondansetron Injection (Zofran Injectio (02/20/21 04:15) Manual Differential (02/20/21 04:02) Medications Given in ED Current Medications Medications Dose Ordered Sig/Radha Route Start Time Stop Time Status Last Admin Dose Admin Lactated Ringer's 1,000 ml @ ud STK-MED ONCE IV 02/20/21 03:56 02/20/21 04:03 DC 02/20/21 04:04 999 MLS/HR Ondansetron HCl 4 mg STK-MED ONCE .ROUTE 02/20/21 03:56 02/20/21 04:04 DC 02/20/21 04:07 8 MG Vital Signs/I&O 02/20/21 02/20/21 03:50 05:35 Temp 37.1 37.1 Pulse 103 96 Resp 18 16 B/P (MAP) 139/107 (118) 142/96 (118) Pulse Ox 98 96 O2 Delivery Room Air Room Air Capillary Refill : Less Than 3 Seconds Blood Pressure Mean: 118 Progress Note : Progress Note Patient was given IV fluids and Zofran with improvement. Labs were evaluated. He had mild leukocytosis without any other serious abnormalities. He was feeling improved and ready for discharge. Diagnostic Imaging Diagonstic Imaging: Xray Plain Films/CT/US/NM/MRI: chest Comments Chest x-ray viewed by me. Report not yet available. No acute abnormalities appreciated when compared with prior. Departure Impression Primary Impression: Nausea vomiting and diarrhea Additional Impressions: Dyspnea Qualified Codes: R06.00 - Dyspnea, unspecified Near syncope Disposition: HOME, SELF-CARE Condition: Improved Departure-Patient Inst. Decision time for Depature: 05:30 Referrals: NO,LOCAL PHYSICIAN (PCP/Family) Primary Care Physician Patient Instructions: COVID-19 Vaccine (mRNA) Add. Discharge Instructions: Drink plenty of clear liquids to stay well-hydrated. Use Zofran as prescribed if needed for nausea and vomiting. You may take ibuprofen up to 600 mg every 6 hours as needed and/or Tylenol (acetaminophen) up to 1000 mg every 6 hours as needed for pain or fevers. Call with questions or concerns. Return to the ER if you have worsening symptoms. All discharge instructions reviewed with patient and/or family. Voiced understanding. Scripts Ondansetron (Ondansetron Odt) 4 Mg Tab.rapdis 4 MG PO Q4H PRN for NAUSEA/VOMITING, #10 TAB Prov: PAPO MONK MD 02/20/21 PAPO MONK MD Feb 20, 2021 05:32
[2021-02-20 05:35] VITALS: BP 142/96
--- NOTE | 2021-02-20 07:49 | Diagnostic Imaging Report ---
INDICATION: Shortness of air, cough and congestion. EXAMINATION: Chest 02/20/2021 3 View chest FINDINGS: The cardiomediastinal silhouette is unremarkable. The pulmonary vasculature is within normal limits. The lungs and pleural spaces are clear. IMPRESSION: No evidence of an acute cardiopulmonary process. Dictated by: Dictated on workstation # [id number]
== END 2021-02-20 05:35 | disposition home or self-care (01) ==
LOC: EDUNIT# 03:48 → ER 03:49
DX: R11.2 Nausea with vomiting, unspecified (principal); R19.7 Diarrhea, unspecified; R06.00 Dyspnea, unspecified; R55 Syncope and collapse; I25.2 Old myocardial infarction; I10 Essential (primary) hypertension; F17.210 Nicotine dependence, cigarettes, uncomplicated; Z20.822 Contact with and (suspected) exposure to COVID-19; Z88.0 Allergy status to penicillin; Z88.2 Allergy status to sulfonamides; Z88.5 Allergy status to narcotic agent; Z88.8 Allergy status to other drugs, medicaments and biological substances; Z82.49 Family history of ischemic heart disease and other diseases of the circulatory system; Z80.9 Family history of malignant neoplasm, unspecified
CPT/HCPCS: 71045; 80053; 83735; 85007; 85027; 87804; 99284; U0002; 36415; 87635

== ENCOUNTER 2021-05-16 13:24 | Emergency (ER) | payer SELFPAY ==
[~2021-05-16] VITALS: Ht 187 cm; Wt 11.0 kg
[~2021-05-16 13:24] MED LIST changes: +ONDA4TAB11 PO
[2021-05-16] MEDS ORDERED: ASPIRIN 81 MG CHEW (CHILDREN'S ASA) PO ONE (13:45)
[2021-05-16 13:48] LABS: BASOPHILS # (AUTO) 0.1 10^3/uL (0.0-0.1); BASOPHILS % (AUTO) 1 % (0-10); EOSINOPHILS # (AUTO) 0.3 10^3/uL (0.0-0.3); EOSINOPHILS % (AUTO) 3 % (0-10); HEMATOCRIT 46 % (40-54); HEMOGLOBIN 14.9 g/dL (13.3-17.7); LYMPHOCYTES # (AUTO) 3.4 10^3/uL (1.0-4.0); LYMPHOCYTES % (AUTO) 40 % (12-44); MEAN CORPUSCULAR HEMOGLOBIN 29 pg (25-34); MEAN CORPUSCULAR HGB CONC 32 g/dL (32-36); MEAN CORPUSCULAR VOLUME 91 fL (80-99); MEAN PLATELET VOLUME 10.1 fL (9.0-12.2); MONOCYTES # (AUTO) 0.5 10^3/uL (0.0-1.0); MONOCYTES % (AUTO) 6 % (0-12); NEUTROPHILS # (AUTO) 4.4 10^3/uL (1.8-7.8); NEUTROPHILS % (AUTO) 51 % (42-75); PLATELET COUNT 239 10^3/uL (130-400); WHITE BLOOD COUNT 8.6 10^3/uL (4.3-11.0)
[2021-05-16 13:55] LABS: ALBUMIN 4.3 GM/DL (3.2-4.5); CHLORIDE 104 MMOL/L (98-107); POTASSIUM 4.2 MMOL/L (3.6-5.0); SODIUM 140 MMOL/L (135-145)
[2021-05-16 13:57] LABS: CALCIUM 8.9 MG/DL (8.5-10.1); PROTHROMBIN TIME PATIENT 13.3 SEC (12.2-14.7)
[2021-05-16 13:58] LABS: GLUCOSE 140 MG/DL (70-105); TOTAL PROTEIN 7.4 GM/DL (6.4-8.2)
[2021-05-16 13:59] LABS: CARBON DIOXIDE 24 MMOL/L (21-32)
[2021-05-16 14:00] LABS: BILIRUBIN,TOTAL 0.4 MG/DL (0.1-1.0)
[2021-05-16 14:01] LABS: ALKALINE PHOSPHATASE 97 U/L (40-136)
[2021-05-16 14:02] LABS: CREATININE SERUM 1.07 MG/DL (0.60-1.30); GFR ESTIMATED > 60
[2021-05-16 14:03] LABS: BUN/CREATININE RATIO 10
[2021-05-16 14:04] LABS: ALANINE AMINOTRANSFERASE 24 U/L (0-55); MAGNESIUM 1.8 MG/DL (1.6-2.4)
[2021-05-16] MEDS ORDERED: fentaNYL INJ 100 MCG/2 ML AMP IVP ONE (14:15)
--- NOTE | 2021-05-16 14:24 | Diagnostic Imaging Report ---
INDICATION: Hypertension, headache, nosebleed.. TECHNIQUE: Single view chest 2:16 PM. CORRELATION STUDY: 02/20/2021 FINDINGS: The heart size, mediastinal configuration and pulmonary vascularity are within normal limits. Lung artis are hyperinflated. Minimal atelectasis at the lung bases. No significant infiltrate. Prominent appearance about central pulmonary arteries may reflect underlying pulmonary arterial hypertension. IMPRESSION: 1. Negative for acute abnormality of the chest. Hyperinflated lung artis. Dictated by: Dictated on workstation # [id number]
[2021-05-16] MEDS ORDERED: KETOROLAC 30 MG/ML VIAL IVP ONE (14:30)
[2021-05-16] MEDS ORDERED: LABETALOL HCL 20 MG/4 ML VIAL IV ONE (14:45)
[2021-05-16] MEDS ORDERED: lisINopril 20 MG (PRINIVIL) TABLET PO ONE (14:45)
--- NOTE | 2021-05-16 16:46 | ED Chest Pain ---
General Chief Complaint: Cardiac/General Problems Stated Complaint: ELEV BP/HEADACHE/NOSE BLEEDS Source: patient Exam Limitations: no limitations History of Present Illness Date Seen by Provider: May 16, 2021 Time Seen by Provider: 13:41 Initial Comments This 51-year-old gentleman presents to the emergency room with complaints of chest pain, hypertension, and headache. He has had some intermittent mild chest pain in recent days but no notable chest pain today. He has intense headache which he states is typical for exacerbations of hypertension. He was previously treated with lisinopril but stopped taking lisinopril a couple of years ago. He does not presently see a primary care provider. He also has history of coronary artery disease reportedly with cardiac catheterization in 2017 showing mild to moderate nonobstructive disease. He is also noted to be wheezing on exam. Allergies and Home Medications Allergies Coded Allergies: Penicillins (Verified Allergy, Severe, Anaphylaxis , 02/07/19) Sulfa (Sulfonamide Antibiotics) (Verified Allergy, Intermediate, Anaphylaxis, 02/07/19) codeine (Verified Allergy, Unknown, 02/07/19) heparin (Verified Allergy, Unknown, 02/07/19) meperidine (Verified Allergy, Unknown, 02/07/19) morphine (Verified Allergy, Unknown, 02/07/19) Home Medications Albuterol Sulfate 1 Puff Puff, 2 PUFF IH Q4H PRN for WHEEZING 1 PUFF = 90 MCG Prescribed by: PAPO LAKHANI on 05/16/21 1729 Lisinopril/Hydrochlorothiazide 1 Each Tablet, 1 EACH PO DAILY Prescribed by: PAPO LAKHANI on 05/16/21 1647 Naproxen 500 Mg Tablet, 500 MG PO BID PRN for PAIN-MODERATE TO SEVERE Prescribed by: ROMY CAMPUZANO on 06/06/19 1514 Ondansetron 4 Mg Tab.rapdis, 4 MG PO Q4H PRN for NAUSEA/VOMITING Prescribed by: PAPO LAKHANI on 02/20/21 0532 Patient Home Medication List Home Medication List Reviewed: Yes Review of Systems Review of Systems Constitutional: no symptoms reported EENTM: No Symptoms Reported Respiratory: See HPI Cardiovascular: See HPI Gastrointestinal: No Symptoms Reported Genitourinary: No Symptoms Reported Musculoskeletal: no symptoms reported Skin: no symptoms reported Psychiatric/Neurological: See HPI Endocrine: No Symptoms Reported Hematologic/Lymphatic: No Symptoms Reported Past Tujglev-Utxpwr-Zvoijb Hx Patient Social History Tobacco Use?: Yes Tobacco type used: Cigarettes Smoking Status: Current Everyday Smoker Substance use?: No Alcohol Use?: No Pt feels they are or have been: No Immunizations Up To Date First/Initial COVID19 Vaccinat: 03/2021 Second COVID19 Vaccination Abdiaziz: 04/2021 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: [employer] Seasonal Allergies Seasonal Allergies: No Past Medical History Surgeries: Yes Adenoidectomy, Ear Surgery, Tonsillectomy Respiratory: No Cardiac: Yes Coronary Artery Disease, Heart Attack, High Cholesterol, Hypertension Neurological: No Genitourinary: No Gastrointestinal: No Musculoskeletal: No Endocrine: No HEENT: Yes (Chronic sinusitis) Cancer: No Psychosocial: No Integumentary: No Blood Disorders: No Family Medical History Heart Disease, Cancer, CAD Under 55 Years Old, Hypertension Physical Exam Vital Signs Vital Signs - First Documented Capillary Refill : Less Than 3 Seconds Height, Weight, BMI Height: 6'2.00" Weight: 230lbs. 0oz. 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 Skin: Normal Color, Warm/Dry Progress/Results/Core Measures Results/Orders Lab Results Laboratory Tests Test 05/16/21 13:38 05/16/21 15:40 Range/Units White Blood Count 8.6 4.3-11.0 10^3/uL Red Blood Count 5.09 4.30-5.52 10^6/uL Hemoglobin 14.9 13.3-17.7 g/dL Hematocrit 46 40-54 % Mean Corpuscular Volume 91 80-99 fL Mean Corpuscular Hemoglobin 29 25-34 pg Mean Corpuscular Hemoglobin Concent 32 32-36 g/dL Red Cell Distribution Width 13.2 10.0-14.5 % Platelet Count 239 130-400 10^3/uL Mean Platelet Volume 10.1 9.0-12.2 fL Immature Granulocyte % (Auto) 0 % Neutrophils (%) (Auto) 51 42-75 % Lymphocytes (%) (Auto) 40 12-44 % Monocytes (%) (Auto) 6 0-12 % Eosinophils (%) (Auto) 3 0-10 % Basophils (%) (Auto) 1 0-10 % Neutrophils # (Auto) 4.4 1.8-7.8 10^3/uL Lymphocytes # (Auto) 3.4 1.0-4.0 10^3/uL Monocytes # (Auto) 0.5 0.0-1.0 10^3/uL Eosinophils # (Auto) 0.3 0.0-0.3 10^3/uL Basophils # (Auto) 0.1 0.0-0.1 10^3/uL Immature Granulocyte # (Auto) 0.0 0.0-0.1 10^3/uL Prothrombin Time 13.3 12.2-14.7 SEC INR Comment 1.0 0.8-1.4 Activated Partial Thromboplast Time 36 H 24-35 SEC Sodium Level 140 135-145 MMOL/L Potassium Level 4.2 3.6-5.0 MMOL/L Chloride Level 104 98-107 MMOL/L Carbon Dioxide Level 24 21-32 MMOL/L Anion Gap 12 5-14 MMOL/L Blood Urea Nitrogen 11 7-18 MG/DL Creatinine 1.07 0.60-1.30 MG/DL Estimat Glomerular Filtration Rate > 60 BUN/Creatinine Ratio 10 Glucose Level 140 H 70-105 MG/DL Calcium Level 8.9 8.5-10.1 MG/DL Corrected Calcium 8.7 8.5-10.1 MG/DL Magnesium Level 1.8 1.6-2.4 MG/DL Total Bilirubin 0.4 0.1-1.0 MG/DL Aspartate Amino Transf (AST/SGOT) 18 5-34 U/L Alanine Aminotransferase (ALT/SGPT) 24 0-55 U/L Alkaline Phosphatase 97 40-136 U/L Myoglobin 52.7 10.0-92.0 NG/ML Troponin I < 0.028 < 0.028 <0.028 NG/ML B-Type Natriuretic Peptide < 10.0 <100.0 PG/ML Total Protein 7.4 6.4-8.2 GM/DL Albumin 4.3 3.2-4.5 GM/DL TSH [place] Testing 0.99 0.35-4.94 UIU/ML My Orders Orders - PAPO MONK MD Cbc With Automated Diff (05/16/21 13:41) Magnesium (05/16/21 13:41) Chest 1 View, Ap/Pa Only (05/16/21 13:41) Ekg Tracing (05/16/21 13:41) Comprehensive Metabolic Panel (05/16/21 13:41) Myoglobin Serum (05/16/21 13:41) Protime With Inr (05/16/21 13:41) Partial Thromboplastin Time (05/16/21 13:41) O2 (05/16/21 13:41) Monitor-Rhythm Ecg Trace Only (05/16/21 13:41) Ed Iv/Invasive Line Start (05/16/21 13:41) Troponin I (05/16/21 13:41) Aspirin Chewable Tablet (Baby Aspirin Ch (05/16/21 13:45) BNP (05/16/21 13:42) Ketorolac Injection (Toradol Injection) (05/16/21 14:30) Thyroid Analyzer (05/16/21 14:20) Labetalol Injection (Normodyne Injection (05/16/21 14:45) Lisinopril Tablet (Zestril Tablet) (05/16/21 14:45) Troponin I (05/16/21 15:40) Medications Given in ED Current Medications Medications Dose Ordered Sig/Radha Route Start Time Stop Time Status Last Admin Dose Admin Aspirin 324 mg ONCE ONCE PO 05/16/21 13:45 05/16/21 13:46 DC 05/16/21 13:48 324 MG Ketorolac Tromethamine 15 mg ONCE ONCE IVP 05/16/21 14:30 05/16/21 14:31 DC 05/16/21 14:20 15 MG Labetalol HCl 10 mg ONCE ONCE IV 05/16/21 14:45 05/16/21 14:46 DC 05/16/21 14:54 10 MG Lisinopril 20 mg ONCE ONCE PO 05/16/21 14:45 05/16/21 14:46 DC 05/16/21 14:55 20 MG Vital Signs/I&O 05/16/21 05/16/21 05/16/21 13:30 13:30 16:55 Temp 35.0 35.7 Pulse 95 76 Resp 20 18 B/P (MAP) 161/104 (123) 125/94 Pulse Ox 96 97 97 O2 Delivery Room Air Room Air Room Air Blood Pressure Mean: 123 Progress Progress Note : Progress Note Chest pain work-up was pursued. EKG was unremarkable. Repeat troponin was negative. Headache was treated with Toradol with moderate improvement. Blood pressure was treated with labetalol and lisinopril with significant improvement. Headache eventually dissipated to minimal. He was prescribed lisinopril/hydrochlorothiazide and instructed to follow-up promptly with primary care and cardiology. Smoking cessation was recommended. He was prescribed an inhaler for his wheezing. Initial ECG Impression Date: May 16, 2021 Initial ECG Impression Time: 13:40 Initial ECG Rate: 82 Initial ECG Rhythm: Normal Sinus Initial ECG Intervals: Normal Initial ECG Impression: Normal Comment Normal sinus rhythm with no ST elevation or depression. No abnormal intervals or axis deviation. Diagnostic Imaging Diagonstic Imaging: Xray Plain Films/CT/US/NM/MRI: chest Departure Impression Primary Impression: Chest pain Qualified Codes: R07.9 - Chest pain, unspecified Additional Impressions: Hypertension Qualified Codes: I10 - Essential (primary) hypertension Acute headache Qualified Codes: R51.9 - Headache, unspecified Wheezing Disposition: 01 HOME, SELF-CARE Condition: Improved Departure-Patient Inst. Decision time for Depature: 16:41 Referrals: BRY GREEN MD [facility]/JUSTIN SOTO MD, DANIEL J MD MARJI, BASHAR J MD NO,LOCAL PHYSICIAN (PCP) Primary Care Physician OMAYRA JOLLEY CHAD C MD Patient Instructions: Chest Pain (DC), High Blood Pressure in Adults Add. Discharge Instructions: Establish with a primary care provider soon as possible. Contact information for some local providers can be found below. 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 Contact information for Dr. Davison, Dr. Brown, and Dr. Serrato is listed below for your convenience. Work on smoking reduction and continue to work toward quitting completely as rapidly as possible. Take aspirated 81 mg daily. Start your blood pressure medication tomorrow. Call with questions or concerns. Return to the ER if you have worsening symptoms. All discharge instructions reviewed with patient and/or family. Voiced understanding. Scripts Albuterol Sulfate (PROAIR HFA) 1 Puff Puff 2 PUFF IH Q4H PRN for WHEEZING, #1 PUFF 1 PUFF = 90 MCG Prov: PAPO MONK MD 05/16/21 Lisinopril/Hydrochlorothiazide (Lisinopril-Hctz 10-12.5 mg Tab) 1 Each Tablet 1 EACH PO DAILY, #30 TAB Prov: PAPO MONK MD 05/16/21 PAPO MONK MD May 16, 2021 16:46
[2021-05-16] MEDS ORDERED: LISI1TAB29 PO (16:47)
[2021-05-16 16:55] VITALS: BP 125/94
[2021-05-16] MEDS ORDERED: RT-ALBUINH IH (17:29)
== END 2021-05-16 16:55 | disposition home or self-care (01) ==
LOC: EDUNIT# 13:24 → ER 13:25
DX: R07.9 Chest pain, unspecified (principal); I10 Essential (primary) hypertension; R51.9 Headache, unspecified; R06.2 Wheezing; I25.2 Old myocardial infarction; F17.210 Nicotine dependence, cigarettes, uncomplicated; Z79.899 Other long term (current) drug therapy
CPT/HCPCS: 36415; 71045; 80053; 83735; 83874; 83880; 84443; 84484; 85025; 85610; 85730; 93005; 93041

== ENCOUNTER 2022-04-03 17:32 | Emergency (ER) | payer SELFPAY ==
[~2022-04-03] VITALS: Ht 187 cm; Wt 113.0 kg
[~2022-04-03 17:32] MED LIST changes: +LISI1TAB44 PO; +RT-ALBUINH IH
--- NOTE | 2022-04-03 18:06 | ED Upper Extremity ---
General Chief Complaint: Upper Extremity Stated Complaint: R HAND SWELLING/PAIN Source: patient Exam Limitations: no limitations History of Present Illness Date Seen by Provider: April 03, 2022 Time Seen by Provider: 18:04 Initial Comments Patient is a 52-year-old male who presents ED with right hand and right wrist pain. He states few days ago he was playing with his kids at home. He states he caught a ball with his right hand and felt his right little finger hyperextend and fell down on the ground with a flexed right wrist felt a pop in the right wrist. Reports clicking sensation with movement. He states he is unable to flex his right little finger at the DIP. Denies any swelling or bruising. Clicking sensation with moving the right wrist. History of previous fracture of the right hand. Denies fever, chills, nausea, vomiting, diarrhea. Patient reports numbness and tingling into the right little finger Allergies and Home Medications Allergies Coded Allergies: Penicillins (Verified Allergy, Severe, Anaphylaxis , 02/07/19) Sulfa (Sulfonamide Antibiotics) (Verified Allergy, Intermediate, Anaphylaxis, 02/07/19) codeine (Verified Allergy, Unknown, 02/07/19) heparin (Verified Allergy, Unknown, 02/07/19) meperidine (Verified Allergy, Unknown, 02/07/19) morphine (Verified Allergy, Unknown, 02/07/19) Patient Home Medication List Home Medication List Reviewed: Yes Albuterol Sulfate (Proair Hfa) 1 Puff Puff, 2 PUFF IH Q4H PRN for WHEEZING Prescribed by: PAPO LAKHANI on 05/16/21 1729 Lisinopril/Hydrochlorothiazide (Lisinopril-Hctz 10-12.5 mg Tab) 1 Each Tablet, 1 EACH PO DAILY Prescribed by: PAPO LAKHANI on 05/16/21 1647 Naproxen (Naprosyn) 500 Mg Tablet, 500 MG PO BID PRN for PAIN-MODERATE TO SEVERE Prescribed by: ROMY CAMPUZANO on 06/06/19 1514 Ondansetron (Ondansetron Odt) 4 Mg Tab.rapdis, 4 MG PO Q4H PRN for NAUSEA/VOMITING Prescribed by: PAPO LAKHANI on 02/20/21 0532 Review of Systems Constitutional: No chills, No diaphoresis, No malaise, No weakness EENTM: No ear pain, No blurred vision, No double vision Respiratory: No cough, No dyspnea on exertion Cardiovascular: No chest pain, No edema Gastrointestinal: No abdominal pain, No diarrhea, No nausea, No vomiting Genitourinary: No decreased output Musculoskeletal: No back pain; joint pain; No joint swelling; muscle pain; No muscle stiffness Skin: No change in color, No change in hair/nails All Other Systems Reviewed Negative Unless Noted: Yes Past Lmiuxpg-Voluuh-Tujdnv Hx Seasonal Allergies Seasonal Allergies: No Past Medical History Surgeries: Yes Adenoidectomy, Ear Surgery, Tonsillectomy Respiratory: No Cardiac: Yes Coronary Artery Disease, Heart Attack, High Cholesterol, Hypertension Neurological: No Genitourinary: No Gastrointestinal: No Musculoskeletal: No Endocrine: No HEENT: Yes (Chronic sinusitis) Cancer: No Psychosocial: No Integumentary: No Blood Disorders: No Family Medical History Heart Disease, Cancer, CAD Under 55 Years Old, Hypertension Physical Exam Vital Signs Vital Signs - First Documented 04/03/22 18:04 Temp 36.7 Pulse 91 Resp 20 B/P (MAP) 159/94 (115) Pulse Ox 96 O2 Delivery Room Air Capillary Refill : Height, Weight, BMI Height: 6'2.00" Weight: 230lbs. 0oz. [id number]; 3.00 BMI Method:Actual General Appearance: WD/WN, no apparent distress HEENT: PERRL/EOMI, normal ENT inspection, TMs normal Neck: non-tender, full range of motion, supple Cardiovascular: regular rate, rhythm, no edema, no gallop, no JVD Respiratory: chest non-tender, lungs clear, normal breath sounds, no respiratory distress, no accessory muscle use Gastrointestinal: normal bowel sounds, non tender, soft Back: normal inspection, no CVA tenderness Hand: normal ROM (Normal active range of motion of the right wrist), bone tenderness (Right distal radius. ), limited ROM (Limited flexion at the DIP joint of the right little finger. No obvious bone deformity swelling bruising.), soft tissue tenderness Neurologic/Psychiatric: negative notcher II-XII nml as tested, no motor/sensory deficits, alert, normal mood/affect, oriented x 3 Skin: normal color, warm/dry Progress/Results/Core Measures Results/Orders My Orders Orders - YESENIA ALMAGUER Wrist, Right, 3 Views Or More (04/03/22 18:03) Hand, Right, 3 Views (04/03/22 18:03) Vital Signs/I&O 04/03/22 04/03/22 18:04 19:04 Temp 36.7 36.7 Pulse 91 91 Resp 20 20 B/P (MAP) 159/94 (115) 159/94 Pulse Ox 96 96 O2 Delivery Room Air Room Air Departure Communication (PCP) X-ray of the right wrist and hand negative for fracture. Patient was having difficulty flexing at the PIP and DIP joint of his finger. I Was able to passively move the finger. Did have some minimal changes with movement after discussing the negative x-rays. Possible tendon injury however does not appear to be a full tear. Possible partial tear. Bruno taped to the ring finger. Recommend following up with hand surgeon which was provided in discharge. Discussed importance of following up within a short period of time. Anti- inflammatories at home. Ice. Due to the mechanism of injury concerning for possible tear. Possible impingement of the tendon limiting range of motion. Return precautions were discussed Impression Primary Impression: Hand pain Disposition: HOME, SELF-CARE Condition: Stable Departure-Patient Inst. Decision time for Depature: 18:57 Referrals: BRY VILLA,LOCAL PHYSICIAN (PCP) Primary Care Physician Patient Instructions: Hand Pain Add. Discharge Instructions: Recommend bruno taping to your ring finger. Recommend follow-up with hand specialist. All discharge instructions reviewed with patient and/or family. Voiced understanding. YESENIA ALMAGUER April 03, 2022 18:06
--- NOTE | 2022-04-03 18:33 | Diagnostic Imaging Report ---
EXAMINATION: Right wrist radiographs. EXAM DATE: 04/03/2022. COMPARISON: None available. HISTORY: Distal radius pain. TECHNIQUE: 3 views of the right wrist. FINDINGS: There is no acute fracture, dislocation or destructive osseous process. The joint spaces are normal. The soft tissues are normal. IMPRESSION: No acute osseous abnormality of the right wrist. Dictated by: Dictated on workstation # [id number]
--- NOTE | 2022-04-03 18:36 | Diagnostic Imaging Report ---
EXAMINATION: Right hand radiographs. EXAM DATE: 04/03/2022. COMPARISON: None available. HISTORY: Distal radius pain. TECHNIQUE: 3 views of the right hand. FINDINGS: There is no acute fracture, dislocation or destructive osseous process. The joint spaces are normal. The soft tissues are normal. IMPRESSION: No acute osseous abnormality of the right hand. Dictated by: Dictated on workstation # [id number]
[2022-04-03 19:04] VITALS: BP 159/94
== END 2022-04-03 19:05 | disposition home or self-care (01) ==
LOC: EDUNIT# 17:32 → ER 17:33
DX: M79.641 Pain in right hand (principal); W21.00XA Struck by hit or thrown ball, unspecified type, initial encounter; X50.1XXA Overexertion from prolonged static or awkward postures, initial encounter
CPT/HCPCS: 73110; 73130